=== PATIENT | male | born 1985 | race Hispanic/Latino ===

== ENCOUNTER 2016-09-10 15:11 | Emergency (ER) | payer OTHER | END 2016-09-10 15:45 | disposition home or self-care (01) | LOC: BURERS 15:11 | DX: M23.91 Unspecified internal derangement of right knee (principal); I10 Essential (primary) hypertension; E78.5 Hyperlipidemia, unspecified | CPT/HCPCS: 99283 ==

== ENCOUNTER 2017-06-17 14:28 | Outpatient (CLI) | payer MEDICARE, OTHER ==
--- NOTE | 2017-06-17 17:57 | RAD ---
RIGHT SHOULDER THREE VIEWS: 06/17/2017 No fracture, dislocation, or AC joint widening was seen. The surrounding bony structures appear norm al. No periarticular calcifications were seen. IMPRESSION: No acute finding. POS: HOME
--- NOTE | 2017-06-17 17:58 | RAD ---
LEFT SHOULDER THREE VIEWS: 06/17/2017 Comparison is made with views of the right shoulder. No fracture, dislocation, or AC joint widening was seen. All bony structures appear normal for age a nd symmetrical when compared with the opposite side. IMPRESSION: No acute finding. POS: HOME
== END 2017-06-17 14:29 | disposition home or self-care (01) ==
LOC: BURRAD 14:28
PROVIDERS: ATTEND Physician Assistant
DX: M25.511 Pain in right shoulder (principal); M25.512 Pain in left shoulder

== ENCOUNTER 2018-08-05 08:39 | Emergency (ER) | payer MEDICARE, OTHER ==
[2018-08-05] MEDS ORDERED: Ketorolac Tromethamine 60 MG/2 ML VIAL ONE (09:04)
== END 2018-08-05 09:08 | disposition home or self-care (01) ==
LOC: BURERS 08:39
DX: M62.830 Muscle spasm of back (principal); I48.91 Unspecified atrial fibrillation; E78.5 Hyperlipidemia, unspecified; I10 Essential (primary) hypertension; F43.10 Post-traumatic stress disorder, unspecified; Z79.891 Long term (current) use of opiate analgesic; Z79.899 Other long term (current) drug therapy
CPT/HCPCS: 96372; J1885

== ENCOUNTER 2019-05-26 17:46 | Emergency (ER) | payer MEDICARE, OTHER ==
[2019-05-26] MEDS ORDERED: Ibuprofen 800 MG TAB ONE (18:07)
== END 2019-05-26 18:30 | disposition home or self-care (01) ==
LOC: BURERS 17:46
DX: B34.9 Viral infection, unspecified (principal); I48.91 Unspecified atrial fibrillation; E78.5 Hyperlipidemia, unspecified; E78.00 Pure hypercholesterolemia, unspecified; I10 Essential (primary) hypertension; F43.10 Post-traumatic stress disorder, unspecified; Z87.891 Personal history of nicotine dependence
CPT/HCPCS: 87804; 99283